=== PATIENT | female | born 1960 | race Caucasian/White ===

== ENCOUNTER 2016-08-01 23:33 | Emergency (ER) | payer MEDICAID ==
[~2016-08-01] VITALS: Ht 162.6 cm; Wt 78.9 kg
[~2016-08-01 23:33] MED LIST: AMBIEN5 MG PO; AMLODIPINE5 M1 PO; ATIVAN1 MG PO; ATORVASTATIN CA80 M1 PO; BRINTELLIX10 MG PO; CIPRO750 MG PO; CLOPIDOGREL75 M1 PO; COZAAR100 MG PO; FERROUS GLUCON325 MG PO; FERROUS SULFAT325 M2 PO; FLA500 PO; GOOD SENSE ASPI81 M3 PO; LAC PO; LANTUS SOLOS100 U/M1 SQ; METFORMIN ER500 M1 PO; METFORMIN850 M1 PO; METOPROLOL SUCC25 M1 PO; MYTAB GAS80 MG PO; NOR10T PO; PRILOSEC40 MG PO; TRAMADOL HCL50 MG PO; VITAMIN C500 M4 PO; ZOF4 PO; ZOLOFT50 MG PO
[2016-08-02 00:20] LABS: BASOPHIL % 0.3 % (0-2); PLATELET COUNT 235 x10^3mcL (130-400)
[2016-08-02 00:28] LABS: RED CELL DISTRIBUTION WIDTH 15.3 % (11.5-14.5)
[2016-08-02 00:34] LABS: CALCIUM 8.7 mg/dL (8.5-10.1); CARBON DIOXIDE 26.8 mmol/L (21-32); CHLORIDE SERUM 99 mmol/L (98-107); GFR1 > 60 mL/min; GLUCOSE SERUM 237 mg/dL (74-106); POTASSIUM SERUM 3.8 mmol/L (3.5-5.1); SODIUM SERUM 133 mmol/L (136-145)
[2016-08-02 00:39] LABS: ALBUMIN 3.5 g/dL (3.4-5.0); ALKALINE PHOSPHATASE 108 U/L (46-116); ALT/SGPT 79 U/L (14-59); AST/SGOT 47 U/L (15-37); BILIRUBIN TOTAL 0.4 mg/dL (0.20-1.00); TOTAL PROTEIN, SERUM 7.3 g/dL (6.4-8.2)
[2016-08-02 01:28] LABS: microscopic required? YES; urine erythrocyte NEGATIVE (NEGATIVE)
[2016-08-02 02:50] VITALS: BP 136/78
== END 2016-08-02 02:50 | disposition home or self-care (01) ==
LOC: ED 23:33
PROVIDERS: Emergency Medicine
DX: J32.0 Chronic maxillary sinusitis (principal); J32.3 Chronic sphenoidal sinusitis; J32.2 Chronic ethmoidal sinusitis; E11.9 Type 2 diabetes mellitus without complications; I10 Essential (primary) hypertension; M19.90 Unspecified osteoarthritis, unspecified site; E78.00 Pure hypercholesterolemia, unspecified; I21.3 ST elevation (STEMI) myocardial infarction of unspecified site; Z95.5 Presence of coronary angioplasty implant and graft; Z88.6 Allergy status to analgesic agent; Z88.0 Allergy status to penicillin; Z79.899 Other long term (current) drug therapy
CPT/HCPCS: 82962

== ENCOUNTER 2017-10-18 01:01 | Inpatient (IN) | payer MEDICAID ==
[~2017-10-18] VITALS: Ht 160 cm; Wt 76.3 kg
[~2017-10-18 01:01] MED LIST changes: -AMLODIPINE5 M1 PO; -METOPROLOL SUCC25 M1 PO; +NOR5 PO; +PRILOSEC OTC20 M1 PO; -PRILOSEC40 MG PO; +TOPROL XL25 MG
[2017-10-18 01:14] VITALS: Ht 160 cm; Wt 76.3 kg
[2017-10-18 03:39] LABS: microscopic required? YES; urine erythrocyte NEGATIVE (NEGATIVE)
[2017-10-18 03:45] LABS: CARBON DIOXIDE 25.3 mmol/L (21-32); CREATININE SERUM 1.1 mg/dL (0.6-1.0); POTASSIUM SERUM 4.1 mmol/L (3.5-5.1)
[2017-10-18 03:55] LABS: BASOPHIL % 0.5 % (0-2); PLATELET COUNT 260 x10^3mcL (130-400)
[2017-10-18 03:57] LABS: BILIRUBIN TOTAL 0.18 mg/dL (0.20-1.00); RED CELL DISTRIBUTION WIDTH 17.3 % (11.5-14.5); TOTAL PROTEIN, SERUM 6.7 g/dL (6.4-8.2)
[2017-10-18 04:18] LABS: ALBUMIN 3.1 g/dL (3.4-5.0)
[2017-10-18 09:08] VITALS: BP 147/66
[2017-10-18 10:30] VITALS: BP 147/66
[2017-10-18 12:51] LABS: CHOLESTEROL/HDL RATIO 4.4; MAGNESIUM 2.1 mg/dL (1.8-2.4)
[2017-10-18 13:35] VITALS: BP 158/71
[2017-10-18 14:00] LABS: AMPHETAMINE QUAL UR NONE DETECTED (See below)
[2017-10-18 18:19] VITALS: BP 155/71
[2017-10-18 20:51] VITALS: BP 149/71
[2017-10-19 05:37] VITALS: BP 130/57
[2017-10-19 06:33] LABS: BASOPHIL % 0.5 % (0-2); PLATELET COUNT 252 x10^3mcL (130-400)
[2017-10-19 06:41] LABS: RED CELL DISTRIBUTION WIDTH 18.9 % (11.5-14.5)
[2017-10-19 06:51] LABS: CALCIUM 8.7 mg/dL (8.5-10.1); CARBON DIOXIDE 25.1 mmol/L (21-32); CHLORIDE SERUM 103 mmol/L (98-107); CREATININE SERUM 0.9 mg/dL (0.6-1.0); GFR1 > 60 mL/min; GLUCOSE SERUM 79 mg/dL (74-106); LIPASE 320 IU/L (73-393); POTASSIUM SERUM 3.9 mmol/L (3.5-5.1); SODIUM SERUM 138 mmol/L (136-145)
[2017-10-19 08:17] LABS: rbc morphology (normal/abnorm) ABNORMAL (NORMAL)
[2017-10-19 09:00] VITALS: BP 145/70
[2017-10-19 16:30] VITALS: BP 139/65
[2017-10-19 17:11] VITALS: BP 130/57
== END 2017-10-19 18:40 | disposition home or self-care (01) | DRG 243 ==
LOC: ED 01:01 → DU 05:33
PROVIDERS: Emergency Medicine; Internal Medicine
DX: K21.9 Gastro-esophageal reflux disease without esophagitis (principal); K85.90 Acute pancreatitis without necrosis or infection, unspecified; I24.9 Acute ischemic heart disease, unspecified; G35 Multiple sclerosis; I11.9 Hypertensive heart disease without heart failure; I25.10 Atherosclerotic heart disease of native coronary artery without angina pectoris; E11.9 Type 2 diabetes mellitus without complications; M94.0 Chondrocostal junction syndrome [Tietze]; R74.0 Nonspecific elevation of levels of transaminase and lactic acid dehydrogenase [LDH]; E78.5 Hyperlipidemia, unspecified; Z79.82 Long term (current) use of aspirin; Z79.4 Long term (current) use of insulin; Z68.27 Body mass index [BMI] 27.0-27.9, adult; Z87.891 Personal history of nicotine dependence; Z79.84 Long term (current) use of oral hypoglycemic drugs
CPT/HCPCS: 83880; 90732; A9500; J2270; J2765; J2785; J3490; J7040; Q0092

== ENCOUNTER 2018-03-19 18:35 | Inpatient (IN) | payer MEDICAID ==
[~2018-03-19] VITALS: Ht 157.5 cm; Wt 71.7 kg
[2018-03-19 18:42] VITALS: Ht 157.5 cm; Wt 71.7 kg
--- NOTE | 2018-03-19 18:43 | NUR ---
EKG IN PROGRESS.
--- NOTE | 2018-03-19 19:51 | NUR ---
PT PRESENTS TO ED WITH C/O CHEST PAIN AND HEAD PAIN X3 DAYS. PT STS SHE HAS HAD CP ON AND OFF SINCE THURSDAY AND TONIGHT IT HAS GOTTEN WORSE. PT ALSO STS SHE HAS HEAD PAIN X3 DAYS. PT DENIES DIZZINESS OR SOB. PT STS SHE ALSO HAS HAD A DRY COUGH AND THAT PROVOKES THE CHEST PAIN. PT ON CM, SITTING ON GURNEY, RESP E/U, NO ACUTE DISTRESS NOTED, DAUGHTER AT BEDSIDE.
[2018-03-19 20:29] LABS: BASOPHIL % 0.7 % (0-2); PLATELET COUNT 203 x10^3mcL (130-400)
[2018-03-19 20:31] LABS: RED CELL DISTRIBUTION WIDTH 17.1 % (11.5-14.5)
[2018-03-19 20:45] LABS: BILIRUBIN TOTAL 0.34 mg/dL (0.20-1.00); CALCIUM 8.7 mg/dL (8.5-10.1); CARBON DIOXIDE 22.2 mmol/L (21-32); CREATININE SERUM 1.4 mg/dL (0.6-1.0); POTASSIUM SERUM 4.2 mmol/L (3.5-5.1); TOTAL PROTEIN, SERUM 7.8 g/dL (6.4-8.2)
[2018-03-19 20:46] LABS: ALBUMIN 3.3 g/dL (3.4-5.0)
--- NOTE | 2018-03-19 20:55 | NUR ---
CRITICAL LAB RESULT RECEIVED FROM [facility] AND RELATED TO DR CHARLES AND THE PRIMARY NURSE.
--- NOTE | 2018-03-19 21:30 | NUR ---
PT SITTING UP ON GURNEY, RESP E/U, NO ACUTE DISTRESS NOTED, DAUGHTERS AT BEDSIDE.
--- NOTE | 2018-03-19 22:23 | NUR ---
REPORT GIVEN TO REGAN GOODSON TO ASSUME PT CARE.
--- NOTE | 2018-03-19 22:40 | NUR ---
RECEIVED PT FROM ED VIA [facility]. NO ACUTE DISTRESS NOTED. PT ABLE TO AMBULATE FROM ERGREGORY TO BED WITHOUT ISSUE, GAIT STEADY. SINUS TACH TO TELE #[id number], HR 103, PT C/O PRESSURE LIKE CP RADIATING TO LUE. WILL MEDICATE PRN, CHEST WALL STABLE. AA/OX4, ABLE TO MAKE NEEDS KNOWN, SPEECH CLEAR AND APPROPRIATE, NO FACIAL DROOP NOTED, PT C/O PAREDES, PERRLA. PULSES PRESENT AND EQUAL THROUGHOUT, NO EDEMA NOTED. BREATHING ON RA, EVEN AND UNLABORED, DENIES SOB OR DYSPNEA, O2 SAT 97% ABD ROUND AND SOFT WITH ACTIVE BOWEL SOUNDS, NON TENDER, DENIES N/V/D. FREELY VOIDS URINE WITHOUT ISSUE. AMBULATORY WITHOUT ASSISTIVE DEVICE, ABLE TO TURN AND REPOSITION SELF IN BED. SKIN CDI. IV SITE TO LAC IN PLACE, 20G, DRY, PATENT, INTACT, NO PAIN, REDNESS, OR SWELLING WHEN FLUSHED WITH NS. COMFORT AND SAFETY MEASURES IMPLEMENTED. ORIENTED PT TO ROOM AND CALL LIGHT. ALL NEEDS ASSESSED AND ATTENDED TO. CALL LIGHT WITHIN REACH. WILL CONTINUE TO MONITOR
[2018-03-19 22:45] LABS: AMYLASE 50 U/L (25-115); LIPASE 671 IU/L (73-393); MAGNESIUM 2.1 mg/dL (1.8-2.4)
[2018-03-19 22:52] LABS: CHOLESTEROL 217 mg/dL (<200); HDL CHOLESTEROL 31 mg/dL (40-60); TRIGLYCERIDES 476 mg/dL (<150)
[2018-03-19 23:02] VITALS: BP 159/77
--- NOTE | 2018-03-19 23:15 | NUR ---
PT GIVEN 2 DOSES OF NITRO SUBLINGUAL FOR 11/23 CP RADIATING TO LUE. PT ADMITS TO REDUCTION IN CP AND STATES, "I'M FEELING GOOD." NO ACUTE DISTRESS NOTED AT THIS TIME. CALL LIGHT WITHIN REACH. WILL CONTINUE TO MONITOR
--- NOTE | 2018-03-19 23:20 | NUR ---
SPOKE WITH DR. YOUNGBLOOD REGARDING ORDERS RECEIVED FOR HEPARIN DRIP. ORDER FOR STAT CT HEAD FIRST BEFORE STARTING HEPARIN DRIP. WILL CARRY OUT ORDERS
--- NOTE | 2018-03-19 23:41 | NUR ---
SPOKE WITH MAILE FROM CT, STATES HE WILL BE UP IN A FEW MINUTES TO TAKE PT DOWN FOR ORDERED CT HEAD. PT S/L AT THIS TIME AND AWARE OF CT. NO ACUTE DISTRESS NOTED. WILL CONTINUE TO MONITOR
--- NOTE | 2018-03-20 02:00 | NUR ---
HEPARIN DRIP STARTED PER DR'S ORDERS. IV SITE TO LAC 20G IN PLACE, PATENT, AND INTACT, NO PAIN, REDNESS, OR SWELLING NOTED. LOADING DOSE OF 4,300 UNITS IVP AND INITIAL RATE STARTED AT 900 UNITS/HR, VERIFIED WITH REGAN ALBERT. STAT PTT ORDERED FOR LATER TODAY AT 0800 PER PROTOCOL. PT EDUCATED FOR NEED OF HEPARIN DRIP AND SAFETY PRECAUTIONS WHILE ON DRIP, PT VERBALIZED UNDERSTANDING. NO ACUTE DISTRESS NOTED AT THIS TIME. PT LAYING IN BED WITH SON AT BEDSIDE. CALL LIGHT WITHIN REACH. WILL CONTINUE TO MONITOR
--- NOTE | 2018-03-20 02:13 | NUR ---
PT C/O 11/23 HEADACHE AT THIS TIME AND REQUESTING PAIN MED. DENIES CP. MEDICATED WITH PRN NORCO PER EMAR
--- NOTE | 2018-03-20 05:00 | NUR ---
PT C/O 09/22 CP AND REQUESTING PAIN MED AT THIS TIME. MEDICATED WITH PRN MORPHINE IVP PER EMAR.
--- NOTE | 2018-03-20 05:31 | NUR ---
HEPARIN DRIP INFUSING AT 900 UNITS/ML AT THIS TIME. ANTICIPATING 0800 PTT. NO SIGNIFICANT CHANGES TO REPORT, PT COMPLIED WITH NURSING CARE THROUGHOUT THE SHIFT WITH NO ACUTE EVENTS OVERNIGHT. NO ACUTE DISTRESS NOTED AT THIS TIME, PT LAYING IN BED, BREATHING EVEN AND UNLABORED. COMFORT AND SAFETY MEASURES MAINTAINED, ALL NEEDS ASSESSED AND ATTENDED TO. CALL LIGHT WITHIN REACH. WILL ENDORSE CARE TO DAY SHIFT NURSE
[2018-03-20 05:45] VITALS: BP 113/59
[2018-03-20 06:59] LABS: BASOPHIL % 1.1 % (0-2); PLATELET COUNT 175 x10^3mcL (130-400)
[2018-03-20 07:08] LABS: RED CELL DISTRIBUTION WIDTH 17.2 % (11.5-14.5)
[2018-03-20 07:24] LABS: CALCIUM 8.5 mg/dL (8.5-10.1); CARBON DIOXIDE 24.8 mmol/L (21-32); CREATININE SERUM 1.2 mg/dL (0.6-1.0); POTASSIUM SERUM 3.6 mmol/L (3.5-5.1)
--- NOTE | 2018-03-20 07:30 | NUR ---
PT SEEN REST ON BED, A/O X 3. PT DENIED CHEST PAIN, BUT STATED WEAKNESS. AND NAUSEA IS SOME RESOVLED. PT BREATHING ON RA, EVEN, UNLABORED. IV SITE PATENT, INTACT. HEPARIN INFUSING AT 900 UNITS/HR, NEXT PTT DRAWN SCHEDULED AT 0800 AM. WILL CONTINUE TO MONITOR.
--- NOTE | 2018-03-20 10:49 | NUR ---
PT VOMIT X 2. SHE VOMIT RIGHT AFTER TAKING ALL MORNING MED INCLUDING ORAL ZOFRAM. PHANERGAN GIVEN PER PRN ORDER. GOT PT'S PTT RESULT 42.2, REBOLUS 2900 UNITS, INCREASED HEPARIN DRIP FROM 900 TO 1000 UNITS PER HEPARIN PROTOCOL. NEXT PTT DRAWN ORDERED AT 1430 PM. WILL CONTINUE TO MONITOR.
[2018-03-20 12:03] LABS: UA SPECIFIC GRAVITY 1.015 (1.005-1.035); microscopic required? YES; urine erythrocyte TRACE (NEGATIVE)
[2018-03-20 12:13] LABS: AMPHETAMINE QUAL UR NONE DETECTED (See below)
--- NOTE | 2018-03-20 12:14 | NUR ---
DR. LUKE TALKED TO PT. PT STATED CHEST PAIN 09/22, NITRO SL GIVEN PER PRN ORDER. WILL GET PT READY FOR TRANSFERING TO ICU.
--- NOTE | 2018-03-20 12:58 | NUR ---
RECHECKED PT'S CP AFTER NITRO SL 07/23, BUT COMPLAIN OF PAREDES, WILL PROVIDE PAIN MANAGEMENT.
--- NOTE | 2018-03-20 13:18 | NUR ---
NORCO GIVEN TO MANAGE PAREDES PER PRN ORDER.
--- NOTE | 2018-03-20 14:18 | NUR ---
PT TRANSFERRED TO ICU BED 8. RC'D REPORT FROM SHREYA. PT CURRENTLY RESTING IN BED. A/A/O/X4, SPEECH CLEAR AND APPROPRIATE. PT REPORTS MILD PAREDES 06/23, PT RC'D MEDICATION PRIOR TO ARRIVAL PER EMAR. PT C/O OF INTERMITTENT ACHING CHEST PAIN 08/23. RESPIRATIONS EQUAL AND UNLABORED. ON RA, DENIES SOB. ABDOMEN SOFT AND NONTENDER. DENIES N/V. PT AMBULATORY WITH BRP. SKIN W/D/I. IV PATENT AND INTACT, LAC 20G. HEPARIN DRIP CURRENTLY INFUSING AT 1000 UNITS/HR. BED IN LOW POSITION. WILL CONTINUE TO MONITOR
--- NOTE | 2018-03-20 14:19 | NUR ---
RECEIVED CALL FROM MARTA (BED CONTROL) AT [facility]. PATIENT UPDATE PROVIDED AND H&P FAXED TO . AWAITING BED ASSIGNMENT PATIENT HAS BEEN ACCEPTED BY CARDIOLOGY AND ACCEPTING MD.
--- NOTE | 2018-03-20 14:55 | NUR ---
NITROGLYCERIN INITIATED AT THIS TIME INFUSING AT 5MCG/MIN. INTEGRILLIN INFUSING AT 2MCG/KG/MIN.
[2018-03-20 15:18] VITALS: BP 148/77
--- NOTE | 2018-03-20 15:23 | NUR ---
PTT 69.5, HEPARIN ADJUSTED TO 900UNITS/HR AT THIS TIME PER HEPARIN PROTOCOL
--- NOTE | 2018-03-20 16:00 | NUR ---
RECEIVED CALL FROM MARTA AT [facility]. PATIENT TO BE TRANSFERRED TO ROOM 230A. ACCEPTING: DR SRINIVASAN, CARDIOLOGY: DR MARTINEZ. REPORT TO BE CALLED TO . WILL ENDORSE INFORMATION TO PRIMARY REGAN OROZCO.
--- NOTE | 2018-03-20 16:06 | NUR ---
TELEPHONED PATIENT'S DAUGHTER VERONICA AND INFORMED HER PATIENT TO BE TRANSFERRED TO [facility] ROOM 230A CICU.
--- NOTE | 2018-03-20 16:11 | NUR ---
REPORT CALLED AND GIVEN TO JOHN FROM [facility]. ALL QUESTIONS AND CONCERNS ADDRESSED AT THIS TIME. CALL BACK NUMBER LEFT IF FURTHER QUESTIONS WERE TO [place]
--- NOTE | 2018-03-20 16:42 | NUR ---
BS CHECKED 405, PER CHARGE OKAY TO ADMINISTER 6 UNITS REG INS
--- NOTE | 2018-03-20 16:47 | NUR ---
PATIENT'S DAUGHTER VERONICA AND [facility] AT BEDSIDE TO TRANSFER PATIENT TO [facility]. ALL OF PATIENT'S BELONGINGS GIVEN TO DAUGHTER VERONICA MALISSA.
== END 2018-03-20 17:30 | disposition short-term general hospital (02) | DRG 190 ==
LOC: ED 18:35 → DU 21:32 → IC 03-20 14:04
PROVIDERS: Emergency Medicine; ADMIT Internal Medicine
DX: I21.9 Acute myocardial infarction, unspecified (principal); K85.90 Acute pancreatitis without necrosis or infection, unspecified; E11.65 Type 2 diabetes mellitus with hyperglycemia; F17.210 Nicotine dependence, cigarettes, uncomplicated; I25.110 Atherosclerotic heart disease of native coronary artery with unstable angina pectoris; J44.9 Chronic obstructive pulmonary disease, unspecified; F41.9 Anxiety disorder, unspecified; Z95.5 Presence of coronary angioplasty implant and graft; Z79.82 Long term (current) use of aspirin; Z79.02 Long term (current) use of antithrombotics/antiplatelets; Z79.4 Long term (current) use of insulin; Z68.28 Body mass index [BMI] 28.0-28.9, adult
CPT/HCPCS: 82962; 83880; J1327; J1644; J1815; J2270; J2550; J3490; J7030; Q0092; Q0162